=== PATIENT | female | born 1975 | race Caucasian/White ===

== ENCOUNTER 2021-06-14 18:18 | Emergency (ER) | payer OTHER ==
[~2021-06-14] VITALS: Ht 162.5 cm; Wt 63.5 kg
== END 2021-06-15 00:20 | disposition short-term general hospital (02) ==
LOC: ED 18:18
DX: M79.661 Pain in right lower leg (principal); Z88.2 Allergy status to sulfonamides; Z88.8 Allergy status to other drugs, medicaments and biological substances